=== PATIENT | female | born 1995 | race African-American/Black ===

== ENCOUNTER 2020-02-06 14:53 | Emergency (ER) | payer SELFPAY ==
[~2020-02-06] VITALS: Ht 157.5 cm; Wt 77.3 kg
[2020-02-06 15:37] VITALS: BP 118/77
== END 2020-02-06 15:56 | disposition home or self-care (01) ==
LOC: EMS 14:58
DX: F41.9 Anxiety disorder, unspecified (principal); R06.02 Shortness of breath; R07.89 Other chest pain; F17.210 Nicotine dependence, cigarettes, uncomplicated; F12.90 Cannabis use, unspecified, uncomplicated
CPT/HCPCS: 99283; Z7502